=== PATIENT | male | born 1985 | race Caucasian/White ===

== ENCOUNTER 2016-10-18 17:53 | Emergency (ER) | payer OTHER ==
[~2016-10-18 17:53] MED LIST: CLEOCIN150 MG PO; IMODIUM2 MG PO; NO MEDICATIONS; VIBRAMYCIN100 M1 PO; ZOFRAN PO
== END 2016-10-18 18:13 | disposition home or self-care (01) ==
LOC: SED 17:53
DX: B86 Scabies (principal); L29.9 Pruritus, unspecified; Z87.891 Personal history of nicotine dependence; Z88.0 Allergy status to penicillin; Z88.8 Allergy status to other drugs, medicaments and biological substances
CPT/HCPCS: 99282

== ENCOUNTER 2016-11-21 12:07 | Emergency (ER) | payer OTHER | END 2016-11-21 12:17 | disposition home or self-care (01) | LOC: SED 12:07 | DX: J06.9 Acute upper respiratory infection, unspecified (principal) | CPT/HCPCS: 87651; 99282 ==

== ENCOUNTER 2016-12-08 10:18 | Emergency (ER) | payer OTHER ==
--- NOTE | ~2016-12-08 | US115 ---
[facility] A Service [facility] RADIOLOGY TEXT RESULTS PATIENT: KIRAN HIGGINBOTHAM LOCATION: SED : [birth year] UNIT #: [id number] AGE: [address]: Mahin Cerrato MD SEX: M ORDER DR: [id number] [place] [id number] E MR#: [id number] Acc #: [id number] NAME: KIRAN HIGGINBOTHAM : 1985 SEX: M STUDY DATE/TIME: 12/08/2016 10:03 UNIT: SED ROOM: STUDY DESCRIPTION: US Scrotum and Contents Attending Physician: Mahin Cerrato M.D. Ordering Physician: Mahin Cerrato M.D. Primary Care Physician: No Primary Care Physician MEDICAL IMAGING REPORT This report is preliminary unless electronic signature is present. EXAM US scrotum and contents. HISTORY 1-day history of groin pain. PROCEDURE Cintron-scale imaging, color-Doppler flow imaging, and Doppler waveform analysis. FINDINGS The testicles are normal in size and echotexture. Normal arterial and venous Doppler waveforms are seen bilaterally. No mass is seen in either testicle. There may be a left varicocele. However, no Valsalva images are provided. IMPRESSION 1. The testicles are normal bilaterally. No mass is seen on either side and there are normal Doppler waveforms bilaterally with no evidence of torsion. 2. Question possible left varicocele though no Valsalva images are provided. Dictated by... Todd Thompson M.D. THIS IS AN ELECTRONICALLY VERIFIED REPORT Todd Thompson M.D. at 12/12/2016 10:38 AM TEV/tmw [facility] A Service [facility] RADIOLOGY TEXT RESULTS PATIENT: KIRAN HIGGINBOTHAM LOCATION: SED : [birth year] UNIT #: [id number] AGE: [address]: Mahin Cerrato MD SEX: M ORDER DR: TD: 12/08/2016 11:31 JOB #: [id number] MEDICAL IMAGING REPORT Page 1 of 1
[2016-12-08 09:37] LABS: URINE SOURCE CLEAN CATCH
[2016-12-08 09:40] LABS: URINE APPEARANCE SL CLOUDY; URINE BILIRUBIN NEG (NEG); URINE BLOOD 3+ (NEG); URINE COLOR YELLOW; URINE GLUCOSE NEG (NORM); URINE KETONE NEG (NEG); URINE LEUKOCYTE ESTERASE 2+ (NEG); URINE NITRATE NEG (NEG); URINE PH 5.5 (5-8); URINE PROTEIN TRACE (NEG); URINE SPECIFIC GRAVITY >=1.030 (1.003-1.035); URINE UROBILINOGEN 0.2 MG/DL (NORM)
[2016-12-08 09:41] LABS: MICRO INDICATED? YES
[2016-12-08 09:47] LABS: CULTURE INDICATED? YES; URINE BACTERIA 2+ (NEG); URINE WBC 200-300 /[HPF] (0-5)
[2016-12-08 09:48] LABS: URINE SQUAMOUS EPITHELIAL CELL FEW /[HPF]
[2016-12-10 03:10] LABS: CHLAMYDIA TRACH Detected (Not Detected); N GONOR Detected (Not Detected)
== END 2016-12-08 10:27 | disposition home or self-care (01) ==
LOC: SED 10:18
PROVIDERS: Emergency Medicine
DX: N39.0 Urinary tract infection, site not specified (principal); N48.1 Balanitis; Z88.0 Allergy status to penicillin
CPT/HCPCS: 76870; 81003; 87086; 87491; 87591; 96372; 99284; J1885

== ENCOUNTER 2017-04-10 11:40 | Emergency (ER) | payer OTHER | END 2017-04-10 12:18 | disposition home or self-care (01) | LOC: SED 11:40 | DX: M77.9 Enthesopathy, unspecified (principal); Z88.0 Allergy status to penicillin; Z88.8 Allergy status to other drugs, medicaments and biological substances | CPT/HCPCS: 29260; 99283 ==